=== PATIENT | male | born 1990 ===

== ENCOUNTER 2016-12-16 20:47 | Emergency (ER) | payer MEDICAID ==
[2016-12-16 22:10] VITALS: RESP 16; O2SAT 100
--- NOTE | 2016-12-16 23:04 | ED PDOC ---
HPI: Psych/Substance Abuse Time Seen by Provider: 12/16/16 22:12 Chief Complaint (Nursing): Psychiatric Evaluation Chief Complaint (Provider): Crisis evaluation History Per: Family History/Exam Limitations: no limitations Onset/Duration Of Symptoms: Persistent Additional Complaint(s): 26yo male, brought to the ED by his family for evaluation of psychotic behavior for the past 7 months. Per patient's parents, the patient has been acting bizarre, talking to self, waking up and sleeping at odd hours. Patient is currently taking Risperdal. He denies any suicidal or homicidal ideation. Patient offers no medical complaints. Past Medical History Reviewed: Historical Data, Nursing Documentation, Vital Signs Vital Signs: Last Vital Signs Temp 98.5 F 12/16/16 22:05 Pulse 69 12/16/16 22:05 Resp 16 12/16/16 22:05 BP 145/91 H 12/16/16 22:05 Pulse Ox 100 12/16/16 22:05 - Medical History PMH: No Chronic Diseases - Surgical History Surgical History: No Surg Hx - Family History Family History: States: No Known Family Hx - Living Arrangements Living Arrangements: With Family - Allergies Allergies/Adverse Reactions: Allergies Allergy/AdvReac Type Severity Reaction Status Date / Time No Known Allergies Allergy Verified 12/16/16 23:00 Review of Systems ROS Statement: Except As Marked, All Systems Reviewed And Found Negative Psych: Negative for: Suicidal ideation Physical Exam - Reviewed Nursing Documentation Reviewed: Yes Vital Signs Reviewed: Yes - Physical Exam Appears: Positive for: Non-toxic, No Acute Distress Head Exam: Positive for: NORMAL INSPECTION Skin: Positive for: Warm Eye Exam: Positive for: Normal appearance Neck: Positive for: Supple Cardiovascular/Chest: Positive for: Regular Rate, Rhythm Respiratory: Positive for: Normal Breath Sounds. Negative for: Respiratory Distress Neurologic/Psych: Positive for: Alert, Oriented, Mood/Affect (interactive, calm and coopertive during exam) - ECG O2 Sat by Pulse Oximetry: 100 (ra) Pulse Ox Interpretation: Normal Medical Decision Making Medical Decision Making: Time: 2214 Impression: crisis evaluation Plan: -- Crisis evaluation Reassess 0010 Patient to be signed out to Dr. Berg pending crisis evaluation and dispo. Scribe Attestation: Documented by Betzy Cano acting as a scribe for Sarah Rincon MD. Provider Attestation: All medical record entries made by the Scribe were at my direction and personally dictated by me. I have reviewed the chart and agree that the record accurately reflects my personal performance of the history, physical exam, medical decision making, and the department course for this patient. I have also personally directed, reviewed, and agree with the discharge instructions and disposition. Disposition - Patient ED Disposition Is Patient to be Admitted: Transfer of Care - Disposition Disposition: Transfer of Care Disposition Time: 00:11 Condition: STABLE Forms: [employer] ([place]ic) Patient Signed Over To: Genaro Berg Handoff Comments: pending crisis and dispo
[2016-12-17 00:06] LABS: BASO % 0.4 % (0.0-2.0); EOS # 0.2 K/uL (0.0-0.7); HEMATOCRIT 46.3 % (35.0-51.0); LYMPH # 2.2 K/uL (1.0-4.3); LYMPH % 30.9 % (20.0-40.0); MEAN CELL VOLUME 95.4 fl (80.0-94.0); MEAN CORPUSCULAR HEMOGLOBIN 32.1 pg (27.0-31.0); MEAN CORPUSCULAR HGB CONC 33.6 g/dL (33.0-37.0); MEAN PLATELET VOLUME 10.3 fl (7.2-11.7); MONO # 0.6 K/uL (0.0-0.8); MONO % 8.2 % (0.0-10.0); NEUT % 57.5 % (50.0-75.0); NRBC % 0.1 % (0.0-0.0); RED CELL DISTRIBUTION WIDTH 13.6 % (11.5-14.5)
[2016-12-17 00:20] LABS: ALB/GLOB RATIO 1.5 (1.0-2.1); ALCOHOL SERUM < 10 mg/dl (0-10); ALKALINE PHOSPHATASE 80 U/L (38-126); ALT/SGPT 67 U/L (21-72); AST/SGOT 40 U/L (17-59); BILIRUBIN,TOTAL 0.8 mg/dl (0.2-1.3); BLOOD UREA NITROGEN 16 mg/dl (9-20); CALCIUM 8.9 mg/dL (8.4-10.2); CARBON DIOXIDE 27 mmol/L (22-30); CHLORIDE 101 mmol/L (98-107); GFR AFRICAN-AMERICAN > 60; GLUCOSE,RANDOM 91 mg/dL (75-110); POTASSIUM 4.1 MMOL/L (3.6-5.0); SODIUM 143 mmol/l (132-148); TOTAL PROTEIN 7.8 G/DL (6.3-8.2)
--- NOTE | 2016-12-17 00:20 | ED PDOC ---
- Laboratory Results Result Diagrams: 12/16/16 23:30 12/16/16 23:30 - ECG O2 Sat by Pulse Oximetry: 100 (ra) Pulse Ox Interpretation: Normal Medical Decision Making Medical Decision Making: Receiving sign out: Patient signed out to me by Dr. Rincon at [address] head, crisis eval, disposition. Scribe Attestation: Documented by Betzy Cano acting as a scribe for Genaro Berg MD. Provider Attestation: All medical record entries made by the Scribe were at my direction and personally dictated by me. I have reviewed the chart and agree that the record accurately reflects my personal performance of the history, physical exam, medical decision making, and the department course for this patient. I have also personally directed, reviewed, and agree with the discharge instructions and disposition. Disposition - Clinical Impression Clinical Impression: Schizophrenia - POA Present On Arrival: None - Disposition Disposition: Transfer of Care Disposition Time: 07:00 Condition: STABLE Forms: [employer] ([place]er) Patient Signed Over To: Reji Weiss Handoff Comments: pending [facility] [place] screen Progress Note - Review of Symptoms Events since last encounter: 32 CT Head FINDINGS: Brain: No intracranial hemorrhage. No mass. No definite edema. Ventricles: No hydrocephalus. Bones/joints: No acute fracture. Soft tissues: Unremarkable. Sinuses: Scattered moderate thickening of ethmoid sinuses. Scattered mild mucosal thickening of remaining sinuses. Mastoid air cells: No mastoid effusion. Orbits: Unremarkable as visualized. IMPRESSION: 1. No acute intracranial abnormality. 2. Sinus disease. CXR: Negative for acute cardiopulmonary disease. At this time, patient is medically cleared for transfer. 0114 Patient pending [facility] [place] screen. 0245 Patient resting comfortably, pending [facility] [place] screen. 0415 Patient resting in room, no distress. Pending [facility] [place] screen. 0545 Patient resting in room, no distress. pending [facility] [place] screen. 0700 Patient to be signed out to Dr. Weiss pending [facility] [place] screen and transfer.
--- NOTE | 2016-12-17 00:33 | CT ---
EXAM: CT Head Without Intravenous Contrast CLINICAL HISTORY: 26 years old, male; Signs and symptoms; Other: Crisis eval; Additional info: Medical clearance TECHNIQUE: Axial computed tomography images of the head/brain without intravenous contrast. All CT scans at this facility use one or more dose reduction techniques, viz.: automated exposure control; ma/kV adjustment per patient size (including targeted exams where dose is matched to indication; i.e. head); or iterative reconstruction technique. Coronal and sagittal reformatted images were created and reviewed. COMPARISON: No relevant prior studies available. FINDINGS: Brain: No intracranial hemorrhage. No mass. No definite edema. Ventricles: No hydrocephalus. Bones/joints: No acute fracture. Soft tissues: Unremarkable. Sinuses: Scattered moderate thickening of ethmoid sinuses. Scattered mild mucosal thickening of remaining sinuses. Mastoid air cells: No mastoid effusion. Orbits: Unremarkable as visualized. IMPRESSION: 1. No acute intracranial abnormality. 2. Sinus disease.
[2016-12-17 01:06] LABS: RBC URINE 2 /hpf (0-3); URINE BILIRUBIN NEGATIVE (NEGATIVE); URINE BLOOD NEGATIVE (NEGATIVE); URINE COLOR YELLOW (YELLOW); URINE GLUCOSE (UA) NEG (Normal); URINE KETONE NEGATIVE (NEGATIVE); URINE LEUKOCYTE ESTERASE NEG Leu/uL (Negative); URINE PROTEIN NEGATIVE (NEGATIVE); WBC URINE 1 /hpf (0-5)
--- NOTE | 2016-12-17 07:14 | ED PDOC ---
- Laboratory Results Result Diagrams: 12/16/16 23:30 12/16/16 23:30 - ECG O2 Sat by Pulse Oximetry: 100 (ra) Pulse Ox Interpretation: Normal Medical Decision Making Medical Decision Making: Time: 7:00 --[place] Genaro Berg [place] [facility] [place] 0710 Patient is not committable for involuntary admission per [facility] 0720 Patient cleared for discharge by Dr Muniz Patient is cleared for discharge Scribe Attestation: Documented by Erickson Murray acting as a scribe for Reji Weiss MD. Scribe Attestation: All medical record entries made by the Scribe were at my direction and personally dictated by me. I have reviewed the chart and agree that the record accurately reflects my personal performance of the history, physical exam, medical decision making, and the department course for this patient. I have also personally directed, reviewed, and agree with the discharge instructions and disposition. Disposition Doctor Will See Patient In The: Office Counseled Patient/Family Regarding: Studies Performed, Diagnosis, Need For Followup - Clinical Impression Clinical Impression: Schizophrenia - POA Present On Arrival: None - Disposition Referrals: [facility] [Outside] Disposition: Routine/Home Disposition Time: 07:38 Condition: GOOD Additional Instructions: Follow up with your PCP in 2-3 days. Instructions: Schizophrenia (ED)
[2016-12-17 07:30] VITALS: BP 124/77; PULSE 65; TEMP 98.1
--- NOTE | 2016-12-17 09:40 | RAD ---
PROCEDURE: CHEST RADIOGRAPH, 1 VIEW HISTORY: Medical clearance COMPARISON: None. 12/16/2016 FINDINGS: LUNGS: Clear. PLEURA: No pneumothorax or pleural fluid seen. CARDIOVASCULAR: Normal. OSSEOUS STRUCTURES: No significant abnormalities. VISUALIZED UPPER ABDOMEN: Normal. OTHER FINDINGS: None. IMPRESSION: No active disease. Please note: No preliminary report/ innterpretation of this examination provided by emergency department personnel.
--- NOTE | 2016-12-17 11:59 | CARD ---
APPROVED REPORT EKG Measurement Heart [id number] [place] [id number] <Conclusion> Normal sinus rhythm RSR' or QR pattern in V1 suggests right ventricular conduction delay Borderline ECG
== END 2016-12-17 07:45 | disposition home or self-care (01) ==
LOC: H.ER 20:47
DX: F20.9 Schizophrenia, unspecified (principal)